=== PATIENT | male | born 1960 | race Two or more races ===

== ENCOUNTER 2018-05-27 16:28 | Emergency (ER) | payer OTHER ==
[~2018-05-27] VITALS: Ht 170.2 cm; Wt 76.2 kg
[2018-05-27] MEDS: LIDOCAINE 1%-EPI 1:100,000 20 ML VIAL TP ONE (16:48)
[2018-05-27] MEDS ORDERED: TDAP DIPH,PERTUSS,TET VAC/PF 0.5 ML DISP.SYRIN IM ONE (17:11)
[2018-05-27] MEDS: TDAP DIPH,PERTUSS,TET VAC/PF 0.5 ML DISP.SYRIN IM ONE (17:18)
--- NOTE | 2018-05-27 17:24 | NUR ---
Patient discharged to home in stable conditon. Written and verbal after care instructions given. Patient verbalizes understanding of instructions.
[2018-05-27 17:25] VITALS: BP 144/84
== END 2018-05-27 17:25 | disposition home or self-care (01) ==
LOC: ER 16:28
DX: S81.811A Laceration without foreign body, right lower leg, initial encounter (principal); W26.8XXA Contact with other sharp object(s), not elsewhere classified, initial encounter; Y93.89 Activity, other specified; Y92.89 Other specified places as the place of occurrence of the external cause; Y99.8 Other external cause status
CPT/HCPCS: 90715; A4217; A4663; J3490